=== PATIENT | female | born 1930 | race Caucasian/White ===

== ENCOUNTER 2017-06-12 21:33 | Emergency (ER) | payer OTHER ==
[~2017-06-12] VITALS: Ht 154.9 cm; Wt 70.3 kg
[2017-06-12] MEDS ORDERED: LISINOPRIL20 M1 PO (21:58)
[2017-06-12] MEDS ORDERED: HYDROCHLOROTH12.5 M3 PO (21:58)
[2017-06-12 22:04] LABS: ABSOLUTE BASOPHIL COUNT 0 /CUMM (0.0-0.2); ABSOLUTE EOSINOPHIL COUNT 0.3 /CUMM (0.0-0.7); ABSOLUTE GRANULOCYTE CT 4.5 /CUMM (1.4-6.5); ABSOLUTE LYMPH COUNT 1.6 /CUMM (1.2-3.4); ABSOLUTE MONOCYTE COUNT 0.9 /CUMM (0.10-0.60); BASOPHIL % 0.3 % (0.0-2.0); EOSINOPHIL % 4.4 % (0-5); GRANULOCYTE % 61.2 % (42.2-75.2); HEMATOCRIT 39.7 % (37-47); MEAN CORPUSCULAR HGB 29.4 PG (27.0-31.0); MEAN CORPUSCULAR HGB CONC 32.6 G/DL (33.0-37.0); MEAN CORPUSCULAR VOLUME 90.3 FL (81.0-99.0); MEAN PLATELET VOLUME 7.8 FL (7.4-10.4); PLATELET COUNT 256 /CUMM (130-400); RBC DISTRIBUTION WIDTH 13.8 % (11.5-14.5); WHITE BLOOD CELL COUNT 7.4 /CUMM (4.8-10.8)
--- NOTE | 2017-06-12 22:35 | ED GENERAL ADULT ---
History of Present Illness General Chief Complaint: General Adult Stated Complaint: BIBA HIGH BP Source: patient, family Exam Limitations: no limitations, unable to give history Vital Signs & Intake/Output Vital Signs & Intake/Output Vital Signs Date Time Temp Pulse Resp B/P B/P Pulse O2 O2 Flow FiO2 Mean Ox Delivery Rate 06/13 0051 50 20 154/85 96 Room Air 06/13 0015 192/90 06/12 2238 180/84 06/12 2136 96.0 54 18 170/100 96 Room Air ED Intake and Output 06/13 0000 06/12 1200 Intake Total Output Total Balance Patient 155 lb Weight Weight Reported by Patient Measurement Method Allergies Coded Allergies: No Known Allergies (06/12/17) Reconcile Medications Hydrochlorothiazide 12.5 MG CAPSULE 1 CAP PO DAILY HTN (Reported) Lisinopril 20 MG TABLET 1 TAB PO DAILY HTN (Reported) Core Measure Meds Pre-Hospital aspirin Triage Note: 86 Y/O FEMALE BIBA FOR HYPERTENSIVE EPISODE. PT STS HER PRESSURE HAS BEEN FLUCTUATING ALL DAY. PARMAED NOTED PRESSURE TO BE 216/88. PT ARRIVES A/O X3 AND DENIES ANY OTHER COMPLAINTS BUT REMAINS HYPERTENSIVE. PT STS HER ONLY C/O IS SOME DIZZINESS WITH HYPERTENSIVE EPISODE. EKG IN PROGRESS AND PT AWAITING PROVIDER EVAL Triage Nurses Notes Reviewed? yes HPI: This is an 86 female for past medical history significant for hypertension, hypothyroidism, breast cancer status post lumpectomy one year ago in the left breast, hyperlipidemia, persistent tachycardia status post ablation, hiatal hernia, chronic urinary tract infections for which she takes long-term antibiotics, that was brought in by ambulance from home for increased blood pressure with weakness and dizziness. The patient was at her sense [facility] when she began to feel dizziness and weakness. Her sent checked her blood pressure and it was 202/100s. This is unusual for her so they called life alert. Subsequent blood pressure was found to be 212/100s. They subsequently called the ambulance. EMS reported blood pressure 216/88. The patient denies any falls or loss of consciousness. The patient denies any change in vision, shortness of breath, chest pain, palpitations, lower extremity edema, nausea or vomiting, headaches, she took all of her medications today. She takes hydrochlorothiazide 12.5 and lisinopril 20 mg for her hypertension. The patient has a family history of hypertension. She sees aircraft motor mechanic Dr. Bundy in [place]. (John DUMONT,Millicent) Past History Travel History Traveled to [place] past 21 day No Medical History Neurological: NONE EENT: NONE Cardiovascular: hypertension, hyperlipidemia, ABLATION Respiratory: NONE Gastrointestinal: NONE Hepatic: NONE Renal: NONE Musculoskeletal: NONE Psychiatric: NONE Endocrine: NONE, hypothyroidism Blood Disorders: NONE Cancer(s): breast cancer MANAGER PROPERTY/Reproductive: NONE Surgical History Surgical History: cataract removal Psychosocial History What is your primary language Mauritian Tobacco Use: Never used ETOH Use: denies use Illicit Drug Use: denies illicit drug use Family History Family History, If Any: MOTHER FHx: hypertension Hx Contributory? Yes (Millicent Lopez MD) Medical History Any Pertinent Medical History? see below for history (Gera DUMONT,Chuck Pierre) Review of Systems Review of Systems Constitutional: Reports: see HPI, weakness. EENTM: Reports: no symptoms. Respiratory: Reports: no symptoms. Cardiovascular: Reports: no symptoms. Musculoskeletal: Reports: no symptoms. Neurological/Psychological: Reports: see HPI. (Millicent Lopez MD) Review of Systems All Other Systems: Reviewed and Negative (Gera DUMONT,Chuck Pierre) Physical Exam Physical Exam General Appearance: well developed/nourished, no apparent distress, alert, awake Head: atraumatic, normal appearance Eyes: Bilateral: normal appearance, PERRL, EOMI. Ears, Nose, Throat: normal pharynx, normal ENT inspection, hearing grossly normal Neck: normal inspection, supple Respiratory: normal breath sounds, chest non-tender Cardiovascular: regular rate/rhythm Gastrointestinal: normal bowel sounds, soft, non-tender Extremities: pedal edema Neurologic/Psych: no motor/sensory deficits, awake, alert, oriented x 3 Skin: intact, normal color, warm/dry Core Measures ACS in differential dx? Yes CVA/TIA Diagnosis: No Sepsis Present: No Sepsis Focused Exam Completed? No (Millicent Lopez MD) Progress Differential Diagnoses I considered the following diagnoses in my evaluation of the patient: Uncontrolled hypertension as the cause of patient's dizziness, BPPV, inner ear pathology such as infection or labyrinthitis/vestibular neuronitis, aortic stenosis. Plan of Care: Orders Procedure Date/time Status TROPONIN LEVEL 06/13 0100 Complete EKG 06/13 0100 Active EKG 06/128 Active URINALYSIS 06/12 2138 Active TROPONIN LEVEL 06/12 2138 Complete COMPREHENSIVE METABOLIC PANEL 06/12 2138 Complete CBC WITHOUT DIFFERENTIAL 06/12 2138 Complete EKG 06/12 2138 Active Laboratory Tests 06/13/17 0046: Troponin I < 0.01 06/12/17 2248: Troponin I Cancelled 06/12/17 2152: Anion Gap 9, Estimated GFR > 60, BUN/Creatinine Ratio 21.3, Glucose 88, Calcium 9.3, Total Bilirubin 1.1, AST 22, ALT 24, Alkaline Phosphatase 107, Troponin I < 0.01, Total Protein 6.1 L, Albumin 3.5, Globulin 2.6, Albumin/Globulin Ratio 1.3, CBC w Diff NO MAN DIFF REQ, RBC 4.40, MCV 90.3, MCH 29.4, MCHC 32.6 L, RDW 13.8, MPV 7.8, Gran % 61.2, Lymphocytes % 21.8, Monocytes % 12.3 H, Eosinophils % 4.4, Basophils % 0.3, Absolute Granulocytes 4.5, Absolute Lymphocytes 1.6, Absolute Monocytes 0.9 H, Absolute Eosinophils 0.3, Absolute Basophils 0 This patient has a history of hypertension on lisinopril 20 mg and hydrochlorothiazide 12.5 mg. She has a history of ablation for persistent tachycardia and today on EKG has evidence of first-degree heart block with a NV interval of 228 and a heart rate of 54. Her vital signs are normal except for an elevated blood pressure of 170/100. The patient took all of her medications today. Another blood pressure was repeated and was 180/82. Since once check for any heart injury over time as patient does have symptomatic hypertension we will repeat an EKG and troponin in 3 hours. Initial ED EKG: normal sinus rhythm, NV, bradycardia 54, 1st degree heart block NV 228, QTC 414. (John DUMONT,Millicent) Differential Diagnoses I considered the following diagnoses in my evaluation of the patient: (Gera DUMONT,Chuck Pierre) Departure Departure Condition: Stable Clinical Impression Primary Impression: Uncontrolled hypertension Departure Forms: Customer Survey General Discharge Information (Millicent Lopez MD) Departure Disposition: HOME OR SELF CARE Additional Instructions: FOLLOW UP WITH YOUR MANAGER DATA FOR BLOOD PRESSURE CONTROL RETURN IF SYMPTOMS WORSEN OR FOR ANY CONCERNS Resident Co-Sign Statement Statement: ED Attending supervision documentation- [X] I saw and evaluated the patient. I have also reviewed all the pertinent lab results and diagnostic results. I agree with the findings and the plan of care as documented in the Resident's documentation. [X] I have reviewed the ED Record and agree with the Resident's documentation. [] Additions or exceptions (if any) to the Resident's note and plan are summarized below: [] (Gera DUMONT,Chuck Pierre) Critical Care Note Critical Care Note Critical Care Time: non-applicable (Gera DUMONT,Chuck Pierre)
[2017-06-13 01:50] VITALS: BP 150/84
== END 2017-06-13 02:33 ==
LOC: ERH 21:33
PROVIDERS: Physician Assistant Medical
DX: I10 Essential (primary) hypertension (principal)
CPT/HCPCS: 93005; 93010